=== PATIENT | female | born 1995 | race Hispanic/Latino ===

== ENCOUNTER 2021-11-11 23:59 | Emergency (ER) | payer OTHER ==
[~2021-11-11] VITALS: Ht 160 cm; Wt 99.8 kg
[2021-11-12] MEDS ORDERED: DEXAMETHASONE SOD PHOS 10 MG/1 ML VIAL IM ONE (00:30)
[2021-11-12] MEDS ORDERED: AMOXICILLIN500 M1 PO (01:01)
== END 2021-11-12 01:09 | disposition home or self-care (01) ==
LOC: ER 11-12 00:03
DX: R50.9 Fever, unspecified (principal); U07.1 COVID-19; J02.0 Streptococcal pharyngitis
CPT/HCPCS: 83518; 99282; J1100; U0002

== ENCOUNTER 2022-01-15 00:25 | Emergency (ER) | payer SELFPAY ==
[~2022-01-15] VITALS: Ht 160 cm; Wt 99.8 kg
[~2022-01-15 00:25] MED LIST: AMOXICILLIN500 M1 PO
[2022-01-15] MEDS ORDERED: DIPHENHYDRAMINE HCL INJ 50 MG/ML VIAL IV ONE (01:15)
[2022-01-15] MEDS ORDERED: METOCLOPRAMIDE HCL 10 MG/2ML VIAL IV ONE (01:15)
[2022-01-15] MEDS ORDERED: SODIUM CHLORIDE 0.9% 1000ML 1,000 ML IV ONE (01:15)
[2022-01-15] MEDS ORDERED: ACETAMINOPHEN 325 MG TAB PO ONE (01:15)
[2022-01-15 03:27] LABS: CLARITY,URINE SL CLOUDY (CLEAR); COLOR,URINE YELLOW (YELLOW); KETONES,URINE NEGATIVE (NEGATIVE); LEUKOCYTE ESTERASE ,URINE TRACE (NEGATIVE); NITRITE,URINE NEGATIVE (NEGATIVE); PROTEIN,URINE DIPSTICK NEGATIVE (NEGATIVE); URINE UROBILINOGEN 0.2 mg/dL (0.2 - 1)
[2022-01-15 03:37] LABS: BACTERIA,URINE FEW /HPF; EPITHELIAL CELLS,URINE MODERATE /LPF; RBC,URINE 0-5 /HPF (0-5)
== END 2022-01-15 04:09 | disposition home or self-care (01) ==
LOC: ER 00:35
DX: O26.91 Pregnancy related conditions, unspecified, first trimester (principal); R51.9 Headache, unspecified
CPT/HCPCS: 81001; 99284; J1200; J7030

== ENCOUNTER 2022-01-16 12:14 | Emergency (ER) | payer OTHER ==
[~2022-01-16] VITALS: Ht 160 cm; Wt 99.8 kg
[2022-01-16] MEDS ORDERED: SODIUM CHLORIDE 0.9% 1000ML 1,000 ML IV STA (13:03)
[2022-01-16] MEDS ORDERED: ACETAMINOPHEN 1000 MG/100 ML IV STA (13:03)
[2022-01-16] MEDS ORDERED: DIPHENHYDRAMINE HCL INJ 50 MG/ML VIAL IV ONE (13:15)
[2022-01-16] MEDS ORDERED: METOCLOPRAMIDE HCL 10 MG/2ML VIAL IV ONE (13:15)
== END 2022-01-16 16:35 | disposition home or self-care (01) ==
LOC: ER 12:24
DX: O21.9 Vomiting of pregnancy, unspecified (principal); R51.9 Headache, unspecified
CPT/HCPCS: 99283; J0131; J1200; J2765; J7030